=== PATIENT | female | born 1995 | race Caucasian/White ===

== ENCOUNTER → 2020-09-01 | Day surgery (SDC) | payer BC ==
--- NOTE | 2020-08-31 16:23 | Pre-Procedure Note/Attestation ---
Pre-Procedure Note/Attestation Complete Prior to Procedure Planned Procedure: not applicable Procedure Narrative: ORIF nasal fracture Indications for Procedure Pre-Operative Diagnosis: Nasal fracture deformity Attestation I attest that I discussed the nature of the procedure; its benefits; risks and complications; and alternatives (and the risks and benefits of such alternatives), prior to the procedure, with the patient (or the patient's legal branch service representative). I attest that, if there was a reasonable possibility of needing a blood transfusion, the patient (or the patient's legal branch service representative) was given the [facility] standardized written summary, pursuant to the [place] Blood Safety Act ([place] Health and Safety Code # 1645, as amended). I attest that I re-evaluated the patient just prior to the surgery and that there has been no change in the patient's H&P,dictated job # [id number] Tesfaye Guillen MD Aug 31, 2020 16:23
--- NOTE | 2020-08-31 16:25 | Brief Operative Note ---
Immediate Post Operative Note Operative Note Chief Complaint: Nasal deformity secondaary to nasal fracture 4 yrs ago. Pre-op Diagnosis: Nasal fracture deformity Procedure: ORIF nasal fracture Post-op Diagnosis: same as pre-op Surgeon: Tesfaye Guillen MD Senior Accounting Clerk: none Additional Surgeons: none Anesthesiologist: Jo-nAn Anesthesia: general Specimen: none Complications: none Condition: stable Fluids: D5LR Estimated Blood Loss: volume - 25 cc Drains: none Packing: SinoNasal gel Tourniquet time: 0 Implant(s) used?: No Tesfaye Guillen MD Aug 31, 2020 16:25
--- NOTE | 2020-08-31 16:29 | Discharge Instructions ---
Discharge Instructions Discharge Instructions Follow up with: Dr. Guillen in his office 09/08/20 3:30 pm Diet: regular, renal (80g protein, 2GM) Resume Normal Activity?: No Activity: light activity Pneumonia Vaccine: pt refused vaccine Influenza Vaccine (Jun to Oct): pt refused vaccine Follow Up Orders ice to face x 48 hours Pt has printed post op instructions reviewed and given to her at her pre op last week as well as her post op meds-Amox and [place]. Return to Work/School on: Sep 15, 2020 For Surgical Patients May shower: No For Congestive Heart Failure Reminder Report to your physician any weight gain of 5 pounds or more in one week. Tesfaye Guillen MD Aug 31, 2020 16:29
[~2020-09-01] VITALS: Ht 160 cm; Wt 56.7 kg
[2020-09-01] VITALS (12 sets, daily range): BP systolic 120–130; BP diastolic 73–88
[~2020-09-01] MED LIST: Bupivacaine 0.5% Inj 30 ml vial INJ ONE; Cocaine HCl 4% 4ml vial TOPIC ONE; DiphenhydrAMINE 50mg/ml Inj IVP PRN; HYDROcodone/Acetamin 5/325 tab ORAL PRN; HYDROmorphone 1mg/ml Carpuject SUBQ PRN; Ketorolac 30mg Inj IV PRN; LR 1000ml 1,000 ML IVLG SCH; Lidocaine 1% MPF 10mg/ml 5ml ONE; Lidocaine 1%/ 10mg/ml/EPI 0.01mg/ml 20ml INJ ONE; Meperidine 25mg/1ml Inj (FOR RIGORS ONLY) IV PRN; Metoclopramide 10mg/2ml Inj IVP PRN; Midazolam 2mg/2ml Inj ONE; ceFAZolin sod 1 GM in D5W 55 ML IV ONE; fentaNYL 100 mcg/2 mL IV ONE
--- NOTE | 2020-09-01 00:45 | Pre-op HX & Phy Repo 2 SIG ---
DATE OF ADMISSION: 09/01/2020 INDICATION FOR SURGERY: This is a 24-year-old female, who broke her nose 4 years ago. She has a nasal deformity. She hit a wall 4 years ago and was seen in the ER. Had it operated on, which was closed reduction at that time and it healed with the dorsum off to the left with a bump. She is here to have that repaired. PAST MEDICAL HISTORY: Significant for acute pancreatitis, for which she recently had labs. Overall clear not an issue. She was drinking too much, which she has stopped. Otherwise no other medical problems. PERSONAL HISTORY: She is single. No children. She ETOH, Drugs DIET: Significant for no dairy. FAMILY HISTORY: Prostate cancer, asthma. SURGICAL HISTORY: [place] teeth and she had an epidural for lower back pain. No issues growing up as a child. ALLERGIES: No known drug allergies. PHYSICAL EXAMINATION: VITAL SIGNS: Height 6 feet 3 inches, 125 pounds as of 08/04/2020. HEENT: Head is normocephalic. Eyes PERRLA, EOMI. Lips, tongue, pharynx, and neck normal. Nose- she has a bump consistent with the injury previously noted. CHEST: Clear to A and P. ABDOMEN: Soft and nontender. Normoactive bowel sounds. HEART: Normal S1, S2. No S3 or S4. No murmur, bruit, gallop, or rub. EXTREMITIES: Grossly normal. NEUROLOGIC: Cranial nerves II through XII grossly normal. Please note, I did not do a breast exam or urinary exam as it was done by [facility] and not indicated for this surgery. ASSESSMENT: She is a candidate for open reduction and internal fixation of nasal fracture. She is stable. Labs have been sent over indicating that. Tesfaye Guillen M.D. DR: PARK JOB#: [id number] CC: YOBANY
--- NOTE | 2020-09-01 08:11 | Anethesia Preoperative Eval ---
Anesthesia Pre-op PMH/ROS General Date of Evaluation: Sep 01, 2020 Time of Evaluation: 07:20 Anesthesiologist: Vero ASA Score: ASA 2 Mallampati Score Class I : Soft palate, uvula, fauces, pillars visible Class II: Soft palate, uvula, fauces visible Class III: Soft palate, base of uvula visible Class IV: Only hard plate visible Mallampati Classification: Class II Surgeon: Wilmer Diagnosis: Nasal Fx Surgical Procedure: ORIF of nasal Fx Anesthesia History: none Family History: no anesthesia problems Allergies: Coded Allergies: Dairy (Verified Allergy, Intermediate, 09/01/20) STOMACH ACHE,BLOATING,CHEEK SWELLING Medications: see eMAR Patient NPO?: Yes Past Medical History Cardiovascular: Denies: HTN, CAD, [place], valve dz, arrhythmia, other Pulmonary: Denies: asthma, COPD, DEONTE, other Gastrointestinal/Genitourinary: Reports: GERD, other - h/o pancreatitis; Denies: CRI, ESRD Neurologic/Psychiatric: Denies: dementia, CVA, depression/anxiety, TIA, other Endocrine: Denies: DM, hypothyroidism, steroids, other HEENT: Denies: cataract (L), cataract (R), glaucoma, [place]ASH[place] (L), WASHOE (R), other Hematology/Immune: Denies: anemia, DVT, bleeding disorder, other Musculoskeletal/Integumentary: Denies: OA, RA, DJD, DDD, edema, other PMH Narrative: as above PSxH Narrative: Septoplasty Anesthesia Pre-op Phys. Exam Physician Exam Last Vital Signs Date Time Temp Pulse Resp B/P (MAP) Pulse Ox O2 Delivery O2 Flow Rate FiO2 09/01/20 06:27 97.1 61 16 120/73 100 Room Air Constitutional: NAD Neurologic: CN 2-12 intact Cardiovascular: RRR, no M/R/G Respiratory: CTA Gastrointestinal: S/NT/ND Airway Exam Mallampati Score: Class II MO: full Neck: flexible ROM: full Teeth: intact Dentures: no upper, no lower Anesthesia Pre-op A/P Labs Urine Test Test 09/01/20 06:00 Urine HCG, Qualitative Negative (NEGATIVE) Risk Assessment & Plan Assessment: ASA 2 Plan: GA with LMA Status Change Before Surgery: No Pre-Antibiotics Drug: Ancef 1gr. Given Within 1 Hr of Incision: Yes Time Given: 07:52 Joseph Pham MD Sep 01, 2020 08:11
--- NOTE | 2020-09-01 08:47 | Immediate Post-Op Evaluation ---
Immediate Post-Op Evalulation Immediate Post-Op Evalulation Procedure: ORIF of nassal Fx Date of Evaluation: Sep 01, 2020 Time of Evaluation: 08:46 IV Fluids: 800 Blood Products: none Estimated Blood Loss: 20 Urinary Output: none Blood Pressure Systolic: 122 Blood Pressure Diastolic: 84 Pulse Rate: 98 Respiratory Rate: 20 O2 Sat by Pulse Oximetry: 99 Temperature (Fahrenheit): 97.6 Pain Score (1-10): 1 Nausea: No Vomiting: No Complications none Patient Status: reacts, patent, none Hydration Status: adequate Joseph Pham MD Sep 01, 2020 08:47
--- NOTE | 2020-09-01 10:29 | 48 Hour Post Anesthesia Eval ---
Post Anesthesia Evaluation Procedure: ORIF of nassal Fx Date of Evaluation: Sep 01, 2020 Time of Evaluation: 10:28 Blood Pressure Systolic: 124 0: 76 Pulse Rate: 68 Respiratory Rate: 18 Temperature (Fahrenheit): 97.6 O2 Sat by Pulse Oximetry: 98 Airway: patent Nausea: No Vomiting: No Pain Intensity: 2 Hydration Status: adequate Cardiopulmonary Status: stable Mental Status/LOC: patient returned to baseline Follow-up Care/Observations: n/a Post-Anesthesia Complications: none Follow-up care needed: ready to discharge Jsoeph Pham MD Sep 01, 2020 10:29
--- NOTE | 2020-09-05 09:14 | Operative Note - Dictated ---
DATE OF OPERATION: 09/01/2020 SURGEON: Tesfaye Guillen MD. RECREATION WORKER: None. ANESTHESIOLOGIST: Joseph Pham MD. ANESTHESIA: LMA general anesthesia as well as 15 mL of 1% lidocaine with 1:100,000 epinephrine and Marcaine 0.5% with 1:200,000 epinephrine in a 50:50 mixture. Additionally, 4 mL of 4% topical cocaine were placed on four nasal pledgets, two on either nostril accounted for at the end of the case. INDICATION FOR SURGERY: The patient broke her nose four years ago, had a closed reduction. It healed abnormally and is here for open reduction and internal fixation repair. PREOPERATIVE DIAGNOSIS: Bump and wide nose a little bit off to the left. POSTOPERATIVE DIAGNOSIS: Bump and wide nose a little bit off to the left. FINDINGS: Bump and wide nose a little bit off to the left. PROCEDURE: Open reduction and internal fixation, nasal fracture. TECHNIQUE: The patient was prepped and draped in usual manner. A time-out was performed and all agreed as to the procedure and equipment required. I then injected the nose with the aforementioned lidocaine, Marcaine, and epinephrine mixture. I made between cartilage incisions with #15 blade and stab incision lower down, but not connected between the cartilage incision. I then elevated over the anterior nose with a small Metzenbaum scissors and then Frazer elevator. I then used an osteotome to remove the bump on the anterior nose and then low lateral osteotomies. I then used an Avelino forceps to make sure there was no greenstick fracture, which there was not. I then was able to grasp the nose. Skin prep tape and cast was placed on the nose. Nose was suctioned dry and one syringe of sinonasal gel was placed 50% in either nostril. ESTIMATED BLOOD LOSS: 25 mL. COMPLICATIONS: None. DRAINS: None. The patient was awake, alert, and stable in the operating room 10 minutes after surgery. Please note that the patient, when I showed up today preop, had a canker sore on her right upper lip. This was before she went into the operating room, so this is something she came into the hospital with. Tesfaye Guillen M.D. DR: William JOB#: [id number] CC:
== END | disposition home or self-care (01) ==
LOC: SUR 05:48
DX: S02.2XXG Fracture of nasal bones, subsequent encounter for fracture with delayed healing (principal); X58.XXXD Exposure to other specified factors, subsequent encounter; M95.0 Acquired deformity of nose; K12.0 Recurrent oral aphthae; Z91.011 Allergy to milk products; K21.9 Gastro-esophageal reflux disease without esophagitis; Z80.42 Family history of malignant neoplasm of prostate
CPT/HCPCS: 21330; 81025; 94003; C9046; J0690; J1100; J1885; J2250; J2405; J2704; J3010; J3490; U0002; 94150